=== PATIENT | female | born 1990 | race Caucasian/White ===

== ENCOUNTER 2016-07-31 16:03 | Emergency (ER) | payer MEDICAID ==
[~2016-07-31] VITALS: Ht 157.5 cm; Wt 55.0 kg
[~2016-07-31 16:03] MED LIST: OXYC1SOL5 PO; PREN0.01 PO
[2016-07-31 16:04] VITALS: BP 164/78; PULSE 74; RESP 15; TEMP 98.7; O2SAT 97
--- NOTE | 2016-07-31 16:23 | PD ---
Physical Exam Date Seen by Provider: July 31, 2016 Time Seen by Provider: 16:21 Narrative 25 yo female that presents to the ED for evaluation of head pain. Has a history of vonWilebrand disease. Takes no meds for it. Only on the left side. Denies trauma. Tooth hurting as well. Pain is on and off shotting pains for about 1 week. Taking ibuprofen with minimal relief. Vitals sign stable. Patient awaiting bed placement. Data Data Last Documented VS Vital Signs Date Time Temp Pulse Resp B/P Pulse Ox O2 Delivery O2 Flow Rate FiO2 07/31/16 16:04 98.7 74 15 164/78 97 MDM Medical Record Reviewed: Yes Supervised Visit with ALTHEA: No Abraham Flores July 31, 2016 16:23
[2016-07-31] MEDS ORDERED: PERI0.126 SWISH-SPIT (16:58)
[2016-07-31] MEDS ORDERED: MAGICADU2 SWISH-SWAL (16:58)
--- NOTE | 2016-07-31 16:59 | PD ---
HPI Chief Complaint: Oral / Dental Pain or Problem Time Seen by Provider: 16:50 Travel History International Travel<30 days: No Contact w/Intl Traveler<30days: No Traveled to known affect area: No History of Present Illness HPI 25-year-old female to history of von Willebrand's disease presents for evaluation of dental pain. Symptoms started 5 days ago. Pain is aching pain localized to the left mandibular third molar which is constant, causing a headache. She's been using pcse-hzl-oftddyw ibuprofen approximate 400 mg in the morning, evening. She has been unable to find a dentist to extract her tooth. She is also complaining of mild left flank pain since yesterday as well. Denies any dysuria, hematuria, nausea or vomiting, abdominal pain, blurred vision, fevers or chills. No other complaints. PFSH Past Medical History Medical History: Denies Significant Hx Diminished Hearing: No Tetanus Vaccination: < 5 Years Influenza Vaccination: No ?: Not LMP: 07/08/16 : 1 Para: 1 Past Surgical History Tonsillectomy: Yes Social History Alcohol Use: Yes (OCC) Tobacco Use: Yes (1/2 PPD) Allergies-Medications (Allergen,Severity, Reaction): Coded Allergies: Penicillin (Verified Allergy, Severe, 05/25/14) Reported Meds & Prescriptions Reported Meds & Active Scripts Active Peridex Liq (Chlorhexidine Gluconate (Mouth) Liq) 0.12% Soln 15 Ml SWISH-SPIT BID Magic Mouthwash Adult Liq (Multi-Ingredient Mouthwash/Gargle) 120 Ml Susp 10 Ml SWISH-SWAL ACHS Each 5mL contains: Nystatin 200,000units, Diphenhydramine 4.25mg, Viscous Lidocaine 10mg, Sanders syrup 0.8 mL Review of Systems Except as stated in HPI: all other systems reviewed are Neg Physical Exam Narrative GENERAL: Well-developed well-nourished female in no acute distress SKIN: Warm and dry. HEAD: Atraumatic. Normocephalic. EYES: Pupils equal and round. No scleral icterus. No injection or drainage. ENT: No nasal bleeding or discharge. Mucous membranes pink and moist. Left mandibular third molar is somewhat impacted, strong gumline is mildly inflamed. There is no edema, no dental decay. No trismus. NECK: Trachea midline. No JVD. No lymphadenopathy or submandibular edema. CARDIOVASCULAR: Regular rate and rhythm. No murmur appreciated. RESPIRATORY: No accessory muscle use. Clear to auscultation. Breath sounds equal bilaterally. GASTROINTESTINAL: Abdomen soft, non-tender, nondistended. Hepatic and splenic margins not palpable. MUSCULOSKELETAL: No obvious deformities. No CVA tenderness. NEUROLOGICAL: Awake and alert. No obvious cranial nerve deficits. Motor grossly within normal limits. Normal speech. Data Data Last Documented VS Vital Signs Date Time Temp Pulse Resp B/P Pulse Ox O2 Delivery O2 Flow Rate FiO2 07/31/16 16:04 98.7 74 15 164/78 97 Orders Urinalysis - C+S If Indicated (07/31/16 17:02) Ed Urine Pregnancytest Poc (07/31/16 17:02) Labs Laboratory Tests Test 07/31/16 17:00 Urine Color LIGHT-YELLOW Urine Turbidity CLEAR Urine pH 5.5 Urine Specific [place] 1.005 Urine Protein NEG mg/dL Urine Glucose (UA) NEG mg/dL Urine Ketones NEG mg/dL Urine Occult Blood NEG Urine Nitrite NEG Urine Bilirubin NEG Urine Urobilinogen LESS THAN 2.0 MG/DL Urine Leukocyte Esterase NEG Urine WBC LESS THAN 1 /hpf Urine Mucus FEW /lpf Microscopic Urinalysis Comment CULT NOT INDICATED MDM Medical Decision Making Medical Screen Exam Complete: Yes Emergency Medical Condition: Yes Medical Record Reviewed: Yes Differential Diagnosis Dental impaction, gingivitis, pericoronitis, dental caries, periodontal abscess Narrative Course Examination is consistent with impacted left third molar. She was given information on reports an outpatient follow-up with maxillofacial surgeon to have dental extraction. Even prescriptions for peridex, Magic mouthwash. She is complaining of mild left flank pain since yesterday as well. Examination is benign, urinalysis ordered and is unremarkable. Stable for discharge. Diagnosis Primary Impression: Impacted third molar tooth Referrals: Oral Maxillofacial Surgeon Additional Instructions: Follow-up with a oral surgeon such as Dr. Silva for definitive therapy. Medication as needed. Return for any emergent medical conditions. Med/Other Pt SpecificInfo: Prescription(s) given Scripts Chlorhexidine Gluconate (Mouth) Liq (Peridex Liq)0.12% Soln15 Ml SWISH-SPIT BID #473 ML Ref 0 Prov:Emelyn Howell MD 07/31/16 Axgqdkoh-Xnfqrgvrvfhacrm-Ftpafkjup Liq (Magic Mouthwash Adult Liq)120 Ml Susp10 Ml SWISH-SWAL ACHS #120 ML Ref 1 Each 5mL contains: Nystatin 200,000units, Diphenhydramine 4.25mg, Viscous Lidocaine 10mg, Sanders syrup 0.8 mL Prov:Emelyn Howell MD 07/31/16 Disposition: 01 DISCHARGE HOME Condition: Stable Deny Tran July 31, 2016 16:59
[2016-07-31 17:27] LABS: BLOOD, URINE NEG (NEG); COMMENT (UR) CULT NOT INDICATED; CULTURE IF INDICATED CULT NOT INDICATED; GLUCOSE,URINE NEG (NEG); KETONE, URINE NEG (NEG); MUCUS URINE FEW /lpf (OCC); NITRITE,URINE NEG (NEG); PH, URINE 5.5 (5.0-8.5); URINE COLOR LIGHT-YELLOW (YELLW/STRAW)
== END 2016-07-31 18:21 | disposition home or self-care (01) ==
LOC: NEPD 16:03
DX: K01.1 Impacted teeth (principal); R51 Headache; R10.9 Unspecified abdominal pain; F17.200 Nicotine dependence, unspecified, uncomplicated
CPT/HCPCS: 81001; 84703; 99283

== ENCOUNTER 2017-01-12 09:55 | Emergency (ER) | payer MEDICAID ==
[~2017-01-12] VITALS: Ht 160 cm; Wt 60.0 kg
[~2017-01-12 09:55] MED LIST changes: +MAGICADU2 SWISH-SWAL; -OXYC1SOL5 PO; +PERI0.126 SWISH-SPIT; -PREN0.01 PO
[2017-01-12 09:58] VITALS: BP 149/82; PULSE 78; RESP 14; TEMP 99; O2SAT 100
--- NOTE | 2017-01-12 11:21 | PD ---
HPI Chief Complaint: Skin Problem Time Seen by Provider: 10:44 Travel History International Travel<30 days: No Contact w/Intl Traveler<30days: No Traveled to known affect area: No History of Present Illness HPI The patient was seen and examined in the presence of the nurse. This patient complains of 2 skin lesions on her face that is been there for 2 years. Symptoms severity is mild. No drainage PFSH Past Medical History Hx Anticoagulant Therapy: Yes ([facility]) Diminished Hearing: No ?: Unknown : 1 Para: 1 Past Surgical History Tonsillectomy: Yes Social History Alcohol Use: Yes (OCC) Tobacco Use: Yes (/2 PPD) Substance Use: No Allergies-Medications (Allergen,Severity, Reaction): Coded Allergies: penicillin G (Unverified Allergy, Severe, 01/12/17) Reported Meds & Prescriptions Reported Meds & Active Scripts Active Peridex Liq (Chlorhexidine Gluconate (Mouth) Liq) 0.12% Soln 15 Ml SWISH-SPIT BID Magic Mouthwash Adult Liq (Multi-Ingredient Mouthwash/Gargle) 120 Ml Susp 10 Ml SWISH-SWAL ACHS Each 5mL contains: Nystatin 200,000units, Diphenhydramine 4.25mg, Viscous Lidocaine 10mg, Sanders syrup 0.8 mL Review of Systems General / Constitutional: No: Fever HENT: No: Headaches Cardiovascular: No: Chest Pain or Discomfort Respiratory: No: Cough Physical Exam Narrative NECK: Symmetrical appearance, midline trachea. No mass or crepitus. Thyroid without enlargement, tenderness, or mass. Psych: Normal mood and affect. Normal insight and judgment. Skin: Patient has 2 epidermoid cysts. There is soft and spongy without fluctuance or drainage. They do not look infected. One is on the back side of the right earlobe and the other is in the right cheek. Data Data Last Documented VS Vital Signs Date Time Temp Pulse Resp B/P (MAP) Pulse Ox O2 Delivery O2 Flow Rate FiO2 01/12/17 09:58 99.0 78 14 149/82 (104) 100 MDM Medical Decision Making Medical Screen Exam Complete: Yes Emergency Medical Condition: Yes Medical Record Reviewed: Yes Differential Diagnosis Cyst, boil, abscess Narrative Course I have reviewed the patient's electronic medical record. Patient has 2 epidermoid cyst. I recommended she follow up with dermatology or plastic surgery to discuss shelling out the lining of the cyst to remove them Diagnosis Primary Impression: Epidermoid cyst of face Additional Instructions: Follow-up with dermatology or plastic surgery to discuss removal Med/Other Pt SpecificInfo: Other Disposition: 01 DISCHARGE HOME Condition: Stable Max Ding MD Jan 12, 2017 11:21
[2017-01-12 12:00] VITALS: BP 132/76
== END 2017-01-12 12:10 | disposition home or self-care (01) ==
LOC: NEPD 09:55
DX: L72.9 Follicular cyst of the skin and subcutaneous tissue, unspecified (principal); F17.200 Nicotine dependence, unspecified, uncomplicated; Z79.899 Other long term (current) drug therapy; Z88.0 Allergy status to penicillin
CPT/HCPCS: 99282

== ENCOUNTER 2017-04-29 03:37 | Emergency (ER) | payer MEDICAID ==
[~2017-04-29] VITALS: Ht 157.5 cm; Wt 62.0 kg
[2017-04-29 03:39] VITALS: BP 136/92; PULSE 108; RESP 18; TEMP 98.1; O2SAT 98
[2017-04-29 03:52] VITALS: BP 146/95; PULSE 90; RESP 16; O2SAT 100
[2017-04-29 03:53] VITALS: O2SAT 100
[2017-04-29 03:59] LABS: AUTOMATED NEUTROPHIL # 5.4 TH/MM3 (1.8-7.7); BASOPHIL % 0.3 % (0.0-2.0); EOSINOPHIL # 0.1 TH/MM3 (0-0.4); EOSINOPHIL % 1.4 % (0.0-4.0); HEMATOCRIT 39.3 % (35.0-46.0); HEMOGLOBIN 13.9 GM/DL (11.6-15.3); LYMPH % 32.1 % (9.0-44.0); LYMPHOCYTE # 2.9 TH/MM3 (1.0-4.8); MEAN CELL VOLUME 94.6 FL (80.0-100.0); MEAN CORPUSCULAR HEMOGLOBIN 33.5 PG (27.0-34.0); MEAN CORPUSCULAR HGB CONC 35.4 % (32.0-36.0); MEAN PLATELET VOLUME 8.4 FL (7.0-11.0); MONO % 7.6 % (0.0-8.0); MONOCYTE # 0.7 TH/MM3 (0-0.9); NEUT % 58.6 % (16.0-70.0); PLATELET COUNT 214 TH/MM3 (150-450); RED BLOOD COUNT 4.16 MIL/MM3 (4.00-5.30); RED CELL DISTRIBUTION WIDTH 13.1 % (11.6-17.2); WHITE BLOOD COUNT 9.2 TH/MM3 (4.0-11.0)
[2017-04-29] MEDS ORDERED: ONDANSETRON HCL 4 MG/2 ML VIAL IV ONE (04:00)
[2017-04-29] MEDS ORDERED: SODIUM CHLOR 0.9% 1000 ML INJ 1,000 ML IV ONE (04:00)
[2017-04-29 04:17] LABS: ALBUMIN 4.3 GM/DL (3.4-5.0); AST (GOT) 9 U/L (15-37); BLOOD UREA NITROGEN 12 MG/DL (7-18); CHLORIDE 104 MEQ/L (98-107); CREATININE 0.88 MG/DL (0.50-1.00); GLOMERULAR FILTRATION RATE 79 ML/MIN (>89); GLUCOSE,RANDOM 103 MG/DL (74-106); SODIUM (NA) 139 MEQ/L (136-145)
--- NOTE | 2017-04-29 04:17 | PD ---
HPI Chief Complaint: GI Complaint Time Seen by Provider: 03:42 Travel History International Travel<30 days: No Contact w/Intl Traveler<30days: No Traveled to known affect area: No History of Present Illness HPI The patient is a 26 year old female who presents to the [facility] emergency department with a history of nausea and vomiting that suddenly began at approximately 11 PM tonight. She reports that her last meal was at 4 PM and consisted of a sub-sandwich. The patient reports that she has a midepigastric abdominal pain that she describes as a burning sensation and vomiting too many times to count. She reports that the fluid is clear and ascitic. The patient denies having any diarrhea. Her last bowel movement was yesterday. She reports that since yesterday she has had urinary frequency and urgency. She denies having any dysuria. She denies having any back pain or fevers. She denies having any vaginal discharge. The patient denies having any known sick contacts. She reports that she has gained some weight over the last couple of months. Otherwise on review of systems, she denies having any known recent fevers, cough, congestion, neck pain, chest pain, shortness of breath, or neurologic symptoms. LMP: Unknown, history of irregular cycles that she has been on Depo-Provera shot, however she missed the dose of her Depo-Provera in March. She reports that she has been using condoms for prevention of . [facility] Past Medical History Narrative Medical The patient's past medical history is significant for von Willebrand's disorder. Hx Anticoagulant Therapy: Yes (VON WIL[facility]BRAND'S) Diminished Hearing: No Medical other: Yes (VON [facility] ) ?: Not : 1 Para: 1 Past Surgical History Narrative Surgical The patient's past surgical history is significant for a tonsillectomy. Tonsillectomy: Yes Social History Alcohol Use: Yes (OCC) Tobacco Use: Yes (1/2 PPD) Substance Use: No Allergies-Medications (Allergen,Severity, Reaction): Coded Allergies: penicillin G (Unverified Allergy, Severe, 04/29/17) Reported Meds & Prescriptions Reported Meds & Active Scripts Active Ranitidine (Ranitidine HCl) 150 Mg Tab 150 Mg PO BID Zofran Odt (Ondansetron Odt) 4 Mg Tab 4 Mg SL Q6HR PRN Review of Systems Except as stated in HPI: all other systems reviewed are Neg General / Constitutional: No: Fever Eyes: No: Visual changes HENT: No: Headaches Cardiovascular: No: Chest Pain or Discomfort Respiratory: No: Shortness of Breath Gastrointestinal: Positive: Nausea, Vomiting, Abdominal Pain, Indigestion Genitourinary: No: Dysuria Musculoskeletal: No: Pain Skin: No Rash Neurologic: No: Weakness Psychiatric: No: Depression Endocrine: No: Polydipsia Hematologic/Lymphatic: No: Easy Bruising Physical Exam Narrative General: The patient is a well-developed well-nourished female in no acute distress. Head and Neck exam: Head is normocephalic atraumatic. Eyes: EOMI, pupils are equal round and reactive to light. Nose: Midline septum with pink mucous membranes Mouth: Dentition unremarkable. Moist mucus membranes. Posterior oropharynx is not erythematous. No tonsillar hypertrophy. Uvula midline. Airway patent. Neck: No palpable lymphadenopathy. No nuchal rigidity. No thyromegaly. Cardiovascular: Regular rate and rhythm without murmurs, gallops, or rubs. No pulse deficit to the extremities. Lungs: Clear to auscultation bilaterally. No wheezes, rhonchi, or rales. Abdomen: Soft, with the midepigastric abdominal tenderness on deep palpation, no other tenderness on palpation of the other quadrants of the abdomen no guarding, rebound, or rigidity. Normal bowel sounds are audible. No tenderness on palpation of McBurney's point. Negative Stuart sign. Extremities: No clubbing, cyanosis, or edema. 2+ pulses in all 4 extremities. Back: No spinous process tenderness to palpation. No costovertebral angle tenderness to palpation. Neurologic Exam: Cranial nerves 2-12 were intact on exam. Strength is 5/5 in all 4 extremities. No sensory deficits noted. No dysdiadochokinesis. Good finger to nose and Heel to figueroa bilaterally. Skin Exam: No rash noted. Intact skin that is warm and dry. Data Data Last Documented VS Vital Signs Date Time Temp Pulse Resp B/P (MAP) Pulse Ox O2 Delivery O2 Flow Rate FiO2 04/29/17 05:24 04/29/17 03:53 100 Room Air 04/29/17 03:52 90 16 04/29/17 03:39 98.1 Orders Orders Complete Blood Count With Diff (04/29/17 03:47) Comprehensive Metabolic Panel (04/29/17 03:47) C-Reactive Protein (Crp) (04/29/17 03:47) Lipase (04/29/17 03:47) Urinalysis - C+S If Indicated (04/29/17 03:47) Iv Access Insert/Monitor (04/29/17 03:47) Ecg Monitoring (04/29/17 03:47) Oximetry (04/29/17 03:47) Sodium Chlor 0.9% 1000 Ml Inj (Ns 1000 M (04/29/17 04:00) Ondansetron Inj (Zofran Inj) (04/29/17 04:00) Ed Urine Pregnancytest Poc (04/29/17 03:56) Ed Discharge Order (04/29/17 05:16) Labs Laboratory Tests Test 04/29/17 03:51 04/29/17 04:30 White Blood Count 9.2 TH/MM3 Red Blood Count 4.16 MIL/MM3 Hemoglobin 13.9 GM/DL Hematocrit 39.3 % Mean Corpuscular Volume 94.6 FL Mean Corpuscular Hemoglobin 33.5 PG Mean Corpuscular Hemoglobin Concent 35.4 % Red Cell Distribution Width 13.1 % Platelet Count 214 TH/MM3 Mean Platelet Volume 8.4 FL Neutrophils (%) (Auto) 58.6 % Lymphocytes (%) (Auto) 32.1 % Monocytes (%) (Auto) 7.6 % Eosinophils (%) (Auto) 1.4 % Basophils (%) (Auto) 0.3 % Neutrophils # (Auto) 5.4 TH/MM3 Lymphocytes # (Auto) 2.9 TH/MM3 Monocytes # (Auto) 0.7 TH/MM3 Eosinophils # (Auto) 0.1 TH/MM3 Basophils # (Auto) 0.0 TH/MM3 CBC Comment DIFF FINAL Differential Comment Blood Urea Nitrogen 12 MG/DL Creatinine 0.88 MG/DL Random Glucose 103 MG/DL Total Protein 7.4 GM/DL Albumin 4.3 GM/DL Calcium Level 9.0 MG/DL Alkaline Phosphatase 67 U/L Aspartate Amino Transf (AST/SGOT) 9 U/L Alanine Aminotransferase (ALT/SGPT) 18 U/L Total Bilirubin 0.7 MG/DL Sodium Level 139 MEQ/L Potassium Level 3.4 MEQ/L Chloride Level 104 MEQ/L Carbon Dioxide Level 29.0 MEQ/L Anion Gap 6 MEQ/L Estimat Glomerular Filtration Rate 79 ML/MIN C-Reactive Protein LESS THAN 0.29 MG/DL Lipase 105 U/L Urine Color YELLOW Urine Turbidity CLEAR Urine pH 6.0 Urine Specific [place] 1.035 Urine Protein 30 mg/dL Urine Glucose (UA) NEG mg/dL Urine Ketones NEG mg/dL Urine Occult Blood NEG Urine Nitrite NEG Urine Bilirubin NEG Urine Urobilinogen 2.0 MG/DL Urine Leukocyte Esterase NEG Urine RBC 1 /hpf Urine WBC LESS THAN 1 /hpf Urine Squamous Epithelial Cells 8 /hpf Urine Mucus MANY /lpf Microscopic Urinalysis Comment CULT NOT INDICATED MDM Medical Decision Making Medical Screen Exam Complete: Yes Emergency Medical Condition: Yes Medical Record Reviewed: Yes Differential Diagnosis Peptic ulcer disease, versus acid reflux, versus pancreatitis, versus viral syndrome, versus gastroenteritis, versus Narrative Course During the course of the patient's emergency department visit, the patient's history, examination, and differential diagnosis were reviewed with the patient. The patient was placed on a athletic monitor with oximetry and frequent blood pressure monitoring. The patient had IV access obtained and blood work sent for analysis. A bedside test was negative. The patient was initially provided normal saline 1 L IV fluid bolus, Zofran 4 mg IV. The patient's laboratory studies were reviewed and remarkable for A CBC that is within normal limits, CMP is remarkable for a potassium of 3.4, GFR of 79, AST 9 , C-reactive protein less than 0.29, lipase 105, urinalysis shows 30 protein, many mucus. The patient was started on a p.o. challenge and tolerated this well. The patient will be discharged home with a prescription for Zofran and ranitidine. The patient is resting comfortably and feels better, is alert and in no distress. The patient's results and examination findings were discussed with the patient. The repeat examination is unremarkable and benign. The history , exam, diagnostic testing, and current condition do not suggest any significant pathology to warrant further testing, continued ED treatment, admission, or surgical evaluation at this point. The vital signs have been stable. The patient does not have uncontrollable pain, intractable vomiting, or other significant symptoms. The patient's condition is stable and appropriate for discharge. The patient will pursue further outpatient evaluation with a primary care physician or other designated or consulting physician as indicated in the discharge instructions. The patient expressed understanding and was agreeable with this plan. Diagnosis Primary Impression: Vomiting Qualified Codes: R11.2 - Nausea with vomiting, unspecified Additional Impression: Abdominal pain Qualified Codes: R10.13 - Epigastric pain Referrals: [facility] 3 days Patient Instructions: Abdominal Pain (ED), Acute Nausea and Vomiting (ED), General Instructions Med/Other Pt SpecificInfo: Prescription(s) given Scripts Ranitidine (Ranitidine) 150 Mg Tab 150 MG PO BID for Heartburn Management, #30 TAB 0 Refills Prov: Génesis Rojas MD 04/29/17 Ondansetron Odt (Zofran Odt) 4 Mg Tab 4 MG SL Q6HR Y for Nausea/Vomiting, #7 TAB 0 Refills Prov: Génesis Rojas MD 04/29/17 Disposition: 01 DISCHARGE HOME Condition: Stable Génesis Rojas MD Apr 29, 2017 04:17
[2017-04-29 04:19] LABS: ALT (GPT) 18 U/L (10-53); C-REACTIVE PROTEIN LESS THAN 0.29 MG/DL (0.00-0.30)
[2017-04-29 04:20] LABS: ALKALINE PHOSPHATASE 67 U/L (45-117); TOTAL BILIRUBIN ADULT 0.7 MG/DL (0.2-1.0); TOTAL PROTEIN 7.4 GM/DL (6.4-8.2)
[2017-04-29 04:50] LABS: BILIRUBIN, URINE NEG (NEG); BLOOD, URINE NEG (NEG); GLUCOSE,URINE NEG (NEG); KETONE, URINE NEG (NEG); MUCUS URINE MANY /lpf (OCC); NITRITE,URINE NEG (NEG); SQUAMOUS EPITHELIAL CELL URINE 8 /hpf (0-5); URINE COLOR YELLOW (YELLW/STRAW); URINE LEUKOCYTE ESTERASE NEG (NEG)
[2017-04-29] MEDS ORDERED: RANI150T PO (05:15)
[2017-04-29] MEDS ORDERED: ZOFR4TAB3 SL (05:15)
== END 2017-04-29 05:29 | disposition home or self-care (01) ==
LOC: NEPE 03:37
DX: R11.2 Nausea with vomiting, unspecified (principal); R10.13 Epigastric pain; D68.0 Von Willebrand disease; F17.200 Nicotine dependence, unspecified, uncomplicated
CPT/HCPCS: 80053; 81001; 83690; 84703; 85025; 86140; 96361; 96374; 99284; J2405; J7030